=== PATIENT | female | born 2000 | race Caucasian/White ===

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

== ENCOUNTER 2022-02-16 04:47 | Emergency (ER) | payer OTHER ==
[2022-02-16 05:27] LABS: Urine Blood 2+ (Negative); Urine Glucose Trace (Negative); Urine Protein Negative (Negative); Urine pH 6.5 (5.0-7.0)
[2022-02-16 05:41] LABS: Hematocrit 43.3 % (36.0-45.0); Lymphocytes % 35.4 % (15.3-44.8); MCV 92.6 fL (80-100); MPV 7.7 fL (7.6-11.3); RBC Red Blood Cell Count 4.68 M/uL (3.86-4.86)
[2022-02-16 05:43] LABS: Urine Bacteria <20 /HPF (<20); Urine RBC None Seen /HPF (None Seen)
[2022-02-16 05:54] LABS: Albumin 4.4 g/dL (3.4-5.0); Bilirubin Total 0.9 mg/dL (0.2-1.0); Potassium 3.5 mmol/L (3.5-5.1); Protein, Total 7.3 g/dL (6.4-8.2)
[2022-02-16] MEDS ORDERED: CIPROFLOXACIN 400mg IV 400 MG/200 ML BAG IV ONE (06:19)
--- NOTE | 2022-02-16 06:45 | ER ---
Nurse's Notes [facility] Name: Tete Loredo Age: 21 yrs Sex: Female : 2000 Arrival Date: 02/16/2022 Time: 04:54 Bed 8 Private MD: Diagnosis: UTI/ Urinary tract infection, site not specified Presentation: 02/16 05:10 Chief complaint: Patient states: "I woke up at 0200 feeling the urge to pee, when I vc1 peed it burned really bad then my stomach started hurting really bad.". Coronavirus screen: Vaccine status: Patient reports receiving the 2nd dose of the covid vaccine. Adonis and Adonis plus 1 booster. At this time, the client does not indicate any symptoms associated with coronavirus-19. Ebola Screen: No symptoms or risks identified at this time. Initial Sepsis Screen: Does the patient meet any 2 criteria? HR > 90 bpm. No. Patient's initial sepsis screen is negative. Does the patient have a suspected source of infection? Yes: Dysuria/Frequency/Urgency/UTI. Risk Assessment: Do you want to hurt yourself or someone else? Patient reports no desire to harm self or others. Onset of symptoms was February 16, 2022 at 02:00. 05:10 Method Of Arrival: Ambulatory vc1 05:10 Acuity: TRACY 3 vc1 Triage Assessment: 05:14 General: Appears in no apparent distress. uncomfortable, Behavior is calm, cooperative, vc1 appropriate for age. Pain: Complains of pain in suprapubic area, right lower quadrant and left lower quadrant Pain does not radiate. Pain currently is 8 out of 10 on a pain scale. EENT: No deficits noted. No signs and/or symptoms were reported regarding the EENT system. Neuro: Level of Consciousness is awake, alert, obeys commands, Oriented to person, place, time, situation, Appropriate for age. Cardiovascular: No deficits noted. Respiratory: Airway is patent Respiratory effort is even, unlabored, Respiratory pattern is regular, symmetrical. GI: Reports lower abdominal pain, epigastric pain. : Reports burning with urination, urgency, urinary frequency, since 0200. Derm: No deficits noted. No signs and/or symptoms reported regarding the dermatologic system. Musculoskeletal: No deficits noted. No signs and/or symptoms reported regarding the musculoskeletal system. 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 - Social history:: Smoking status: Patient denies any tobacco usage or history of. - Family history:: not pertinent. - Hospitalizations: : No recent hospitalization is reported. Screenin:14 [facility] ED Fall Risk Assessment (Adult) History of falling in the last 3 months, vc1 including since admission No falls in past 3 months (0 pts) Confusion or Disorientation No (0 pts) Intoxicated or Sedated No (0 pts) Impaired Gait No (0 pts) Mobility Assist Device Used No (0 pt) Altered Elimination Yes (1 pt) Score/Fall Risk Level 0 - 2 = Low Risk Maintained a safe environment. Abuse screen: Denies threats or abuse. Nutritional screening: No deficits noted. Tuberculosis screening: No symptoms or risk factors identified. Fall Risk No fall in past 12 months (0 pts). Assessment: 05:17 GI: Abd is soft Abdomen is tender to palpation in suprapubic area, right lower quadrant vc1 and left lower quadrant. 06:51 Reassessment: Patient appears in no apparent distress at this time. Patient is alert, aa9 oriented x 3, equal unlabored respirations, skin warm/dry/pink. discharge pending Cipro infusion completion. 07:29 Reassessment: Patient appears in no apparent distress at this time. Patient is alert, vg1 oriented x 3, equal unlabored respirations, skin warm/dry/pink. Patient denies pain at this time. Patient states feeling better. Vital Signs: 05:10 BP 128 / 95; Pulse 117; Resp 18; Temp 99.0(O); Pulse Ox 100% ; Weight 61.23 kg; Height vc1 5 ft. 7 in. (170.18 cm); Pain 8/10; 06:26 BP 126 / 85; Pulse 73; Resp 16; Pulse Ox 100% on R/A; ll3 06:30 BP 118 / 80; Pulse 75; Resp 20 S; Pulse Ox 99% ; aa9 05:10 Body Mass Index 21.14 (61.23 kg, 170.18 cm) vc1 ED Course: 04:54 Patient arrived in ED. ja2 04:58 Jewel Huang MD is Attending Physician. rn 05:13 Triage completed. vc1 05:14 Arm band placed on right wrist. vc1 05:16 Patient has correct armband on for positive identification. Bed in low position. Call vc1 light in reach. Pulse ox on. NIBP on. 05:20 Initial lab(s) drawn, by me, sent to lab. Inserted saline lock: 22 gauge in right ll3 antecubital area, using aseptic technique. Blood collected. 05:49 CT Stone Protocol In Process Unspecified. EDMS 06:25 Denisa Lira, RN is Primary Nurse. ll3 06:51 No provider procedures requiring assistance completed. aa9 07:29 IV discontinued, intact, bleeding controlled, No redness/swelling at site. Pressure vg1 dressing applied. Administered Medications: 06:25 Drug: Cipro (ciprofloxacin) 400 mg Volume: 200 ml; Route: IVPB; Infused Over: 60 mins; ll3 Site: right antecubital; Medication: 05:16 VIS not applicable for this client. vc1 Outcome: 06:44 Discharge ordered by . rn 07:29 Discharged to home ambulatory, with family. vg1 07:29 Condition: good 07:29 Discharge instructions given to patient, Instructed on discharge instructions, follow up and referral plans. medication usage, Demonstrated understanding of instructions, follow-up care, medications, Prescriptions given X 2. 07:29 Patient left the ED. vg1 Signatures: Dispatcher [employer] [facility] Jewel Huang MD MD rn Garcia, Victoria RN RN vg1 Tanvi Williamson ja2 Denisa Lira RN RN ll3 Bernadette Olivas RN RN vc1 Rosetta Mcpherson, RN RN aa9 Corrections: (The following items were deleted from the chart) 06:26 06:25 BP 118 / 80; Pulse 88bpm; Resp 16bpm; Pulse Ox 99% RA; ll3 ll3
--- NOTE | 2022-02-16 06:45 | EDPHYS ---
Physician Documentation [facility] Name: Tete Loredo Age: 21 yrs Sex: Female : 2000 Arrival Date: 02/16/2022 Time: 04:54 Bed 8 Private MD: ED Physician Jewel Huang HPI: 02/16 05:16 This 21 yrs old Female presents to ER via Ambulatory with complaints of Urinary rn Problem, Abdominal Pain. 05:17 The patient presents with urinary symptoms, frequency, urgency. Onset: The rn symptoms/episode began/occurred this morning. Modifying factors: The symptoms are alleviated by nothing, the symptoms are aggravated by nothing. Associated signs and symptoms: Pertinent positives: dysuria, Pertinent negatives: fever, hematuria, vaginal discharge. Severity of symptoms: At their worst the symptoms were moderate, in the emergency department the symptoms have improved. The patient has not experienced similar symptoms in the past. The patient has not recently seen a physician. 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 - Social history:: Smoking status: Patient denies any tobacco usage or history of. - Family history:: not pertinent. - Hospitalizations: : No recent hospitalization is reported. ROS: 05:17 Constitutional: Negative for fever, chills, and weight loss, Eyes: Negative for injury, rn pain, redness, and discharge, Cardiovascular: Negative for chest pain, palpitations, and edema, Respiratory: Negative for shortness of breath, cough, wheezing, and pleuritic chest pain, Abdomen/GI: + lower abd pain Back: Negative for injury and pain, : + dysuria and increased frequency, + urgency MS/Extremity: Negative for injury and deformity, Skin: Negative for injury, rash, and discoloration, Neuro: Negative for headache, weakness, numbness, tingling, and seizure. Exam: 05:17 Constitutional: This is a well developed, well nourished patient who is awake, alert, rn and in no acute distress. Head/Face: Normocephalic, atraumatic. Cardiovascular: Tachycardic, regular. No pulse deficits. Respiratory: No increased work of breathing, no retractions or nasal flaring. Abdomen/GI: soft, mild suprapubic and LLQ tenderness Back: No spinal tenderness. No costovertebral tenderness. Full range of motion. Skin: Warm, dry MS/ Extremity: Pulses equal, no cyanosis. Neuro: Awake and alert, GCS 15 Vital Signs: 05:10 BP 128 / 95; Pulse 117; Resp 18; Temp 99.0(O); Pulse Ox 100% ; Weight 61.23 kg; Height vc1 5 ft. 7 in. (170.18 cm); Pain 8/10; 06:26 BP 126 / 85; Pulse 73; Resp 16; Pulse Ox 100% on R/A; ll3 06:30 BP 118 / 80; Pulse 75; Resp 20 S; Pulse Ox 99% ; aa9 05:10 Body Mass Index 21.14 (61.23 kg, 170.18 cm) vc1 MDM: 04:58 Patient medically screened. rn 06:43 Differential diagnosis: kidney stone, urinary tract infection. Data reviewed: vital rn signs, nurses notes, lab test result(s), radiologic studies, CT scan, and as a result, I will discharge patient. Counseling: I had a detailed discussion with the patient and/or guardian regarding: the historical points, exam findings, and any diagnostic results supporting the discharge/admit diagnosis, lab results, radiology results, the need for outpatient follow up, to return to the emergency department if symptoms worsen or persist or if there are any questions or concerns that arise at home. Response to treatment: the patient's symptoms have mildly improved after treatment, and as a result, I will discharge patient. Special discussion: I discussed with the patient/guardian in detail that at this point there is no indication for admission to the hospital. It is understood, however, that if the symptoms persist or worsen the patient needs to return immediately for re-evaluation. 02/16 05:07 Order name: CBC with Diff; Complete Time: 05:47 rn 02/16 05:07 Order name: CMP; Complete Time: 06:14 rn 02/16 05:07 Order name: Urine Microscopic Only; Complete Time: 05:54 rn 02/16 05:26 Order name: Urine --Ancillary (enter results); Complete Time: 05:39 ds4 02/16 05:27 Order name: Urine Dipstick-Ancillary; Complete Time: 05:39 EDMS 02/16 05:50 Order name: Urine Culture EDDE 02/16 05:07 Order name: IV Saline Lock; Complete Time: 05:19 rn 02/16 05:07 Order name: Labs collected and sent; Complete Time: 05:19 rn 02/16 05:07 Order name: Urine Dipstick-Ancillary (obtain specimen); Complete Time: 05:26 rn 02/16 05:07 Order name: Urine Test (obtain specimen); Complete Time: 05:26 rn 02/16 05:07 Order name: CT Stone Protocol rn Administered Medications: 06:25 Drug: Cipro (ciprofloxacin) 400 mg Volume: 200 ml; Route: IVPB; Infused Over: 60 mins; ll3 Site: right antecubital; Disposition Summary: 02/16/22 06:44 Discharge Ordered Location: Home rn Problem: new rn Symptoms: have improved rn Condition: Stable rn Diagnosis - UTI/ Urinary tract infection, site not specified rn Followup: rn - With: Private Physician - When: As needed - Reason: Recheck today's complaints, Re-evaluation by your physician Discharge Instructions: - Discharge Summary Sheet rn - Dysuria rn - Urinary Tract Infection, Adult rn Forms: - Medication Reconciliation Form rn - Thank You Letter rn - Antibiotic e learning specialist - Prescription Opioid Use rn Prescriptions: - Pyridium 200 mg Oral Tablet - take 1 tablet by ORAL route every 8 hours for 3 days; 9 tablet; Refills: 0, rn Product Selection Permitted - Cipro 500 mg Oral Tablet - take 1 tablet by ORAL route every 12 hours for 7 days; 14 tablet; Refills: 0, rn Product Selection Permitted Signatures: Dispatcher [employer] EDMS Jewel Huang MD MD rn Loubet, Lynsea RN RN ll3 Bernadette Olivas RN RN 1 Naya Carranza PA-C PA-C sb4
[2022-02-16 07:53] VITALS: TEMP 99
[2022-02-16 07:55] VITALS: BP 118/80; O2SAT 99
--- NOTE | 2022-02-16 14:36 | RAD REPORT ---
EXAM DESCRIPTION: CT - Stone Protocol - 02/16/2022 6:17 am CLINICAL HISTORY: The patient is 21 years old and is Female; sudden onset lower abd pain, famhx of s tones TECHNIQUE: Axial computed tomography images of the abdomen and pelvis without intravenous contrast. Sagittal and coronal reformatted images were created and reviewed. This CT exam was performed usi ng one or more of the following dose reduction techniques: automated exposure control, adjustment o f the mA and/or kV according to patient size, and/or use of iterative reconstruction technique. COMPARISON: No relevant prior studies available. FINDINGS: Lung bases: Unremarkable. No mass. No consolidation. ABDOMEN: Liver: Unremarkable. Gallbladder and bile ducts: Unremarkable. No calcified stones. No ductal dilation. Pancreas: Unremarkable. No ductal dilation. Spleen: Unremarkable. No splenomegaly. Adrenals: Unremarkable. No mass. Kidneys and ureters: Unremarkable. No obstructing stones. No hydronephrosis. Stomach and bowel: Unremarkable. No obstruction. No mucosal thickening. PELVIS: Appendix: The appendix appears normal. Bladder: Unremarkable. Reproductive: Unremarkable as visualized. ABDOMEN and PELVIS: Intraperitoneal space: Small amount of free fluid in the dependent pelvis which may be physiolog ic. No free air. Bones/joints: No acute fracture. No dislocation. Soft tissues: Unremarkable. Vasculature: Unremarkable. No abdominal aortic aneurysm. Lymph nodes: Unremarkable. No enlarged lymph nodes. IMPRESSION: No acute finding in the abdomen/pelvis. Electronically signed by: Everette Orozco MD 02/16/2022 6:07 AM EVENT MANAGER Due to temporary technical issues with the PACS/Fluency reporting system, reports are being signed by the in house radiologists without review as a courtesy to insure prompt reporting. The interpreting radiologist is fully responsible for the content of the report.
== END 2022-02-16 07:29 | disposition home or self-care (01) ==
LOC: ER 04:47
DX: N39.0 Urinary tract infection, site not specified (principal); Z88.1 Allergy status to other antibiotic agents
CPT/HCPCS: 87088; 85025; 87086; 36415; 81025; 80053; 76377; 74176; J0744; 81003; 81015; 87077; 87186; 96374; 99284